=== PATIENT | male | born 1960 | race Caucasian/White ===

== ENCOUNTER 2017-01-09 10:56 | Emergency (ER) | payer BC ==
[~2017-01-09] VITALS: Ht 185.4 cm; Wt 140.6 kg
== END 2017-01-09 13:30 | disposition home or self-care (01) ==
LOC: SED 10:56
DX: T63.441A Toxic effect of venom of bees, accidental (unintentional), initial encounter (principal); R06.02 Shortness of breath; I10 Essential (primary) hypertension; Z90.49 Acquired absence of other specified parts of digestive tract; Z88.1 Allergy status to other antibiotic agents; Y92.9 Unspecified place or not applicable
CPT/HCPCS: 96365; 96375; 99283; J1100; J1200